=== PATIENT | male | born 1980 | race Caucasian/White ===

== ENCOUNTER 2016-12-13 21:18 | Emergency (ER) | payer MEDICAID ==
[~2016-12-13] VITALS: Ht 175.3 cm; Wt 120.9 kg
[~2016-12-13 21:18] MED LIST: BACTRIM DS 8001 TAB PO; DOXYCYCLINE 10100 MG PO; FLEXERIL 1010 MG/TAB PO; MOBIC15 MG PO; MOTRIN 200200 MG/TAB PO; MOTRIN SUSP20 MG/ML PO; NEURONTIN300 MG PO; NEURONTIN300 MG/CAP PO; NORCO 325 MG-101 TAB; PERCOCET 325 MG1 TAB PO; PERCR 7.5 PO; PROVENTIL0.09 MG/A1 IH; ROBAXIN 50500 MG/TAB PO; ROXICODONE 55 MG/TAB PO; TUSS PO; ULTRAM 50MG TAB50 MG PO; VALIUM 5MG T5 MG/TAB PO
[2016-12-13 21:21] VITALS: TEMP 98.3
[2016-12-13] MEDS ORDERED: MOBIC15 MG PO (21:45)
[2016-12-13] MEDS ORDERED: PERCOCET 325 MG1 TA3 PO (21:45)
[2016-12-13] MEDS ORDERED: EFFEXOR 75M75 MG/TAB PO (21:46)
[2016-12-13] MEDS ORDERED: ATARAX50 MG PO (21:46)
[2016-12-13 23:40] VITALS: BP 112/74; PULSE 86
== END 2016-12-13 23:41 | disposition home or self-care (01) ==
LOC: COL.ER 21:18
DX: M54.5 Low back pain (principal); G89.29 Other chronic pain
CPT/HCPCS: J1170; J2360

== ENCOUNTER 2017-04-02 00:45 | Emergency (ER) | payer MEDICAID ==
[~2017-04-02] VITALS: Ht 175.3 cm; Wt 105.5 kg
[~2017-04-02 00:45] MED LIST changes: +ATARAX50 MG PO; +EFFEXOR 75M75 MG/TAB PO; +PERCOCET 325 MG1 TA3 PO
[2017-04-02 00:47] VITALS: BP 128/78; TEMP 98.1
[2017-04-02] MEDS ORDERED: BACTRIM DS 8001 TAB PO (01:25)
[2017-04-02 01:56] LABS: HEMATOCRIT 39.2 % (42.0-52.0); HEMOGLOBIN 14.1 g/dl (13.5-18.0)
[2017-04-02 02:06] LABS: CALCIUM 8.8 mg/dL (8.4-10.2); CREATININE, serum 0.89 mg/dL (0.66-1.25); POTASSIUM 3.9 mmol/L (3.4-5.0)
[2017-04-02 02:58] VITALS: PULSE 95
== END 2017-04-02 02:57 | disposition home or self-care (01) ==
LOC: COL.ER 00:45
PROVIDERS: Emergency Medicine
DX: R21 Rash and other nonspecific skin eruption (principal); R53.83 Other fatigue; F41.9 Anxiety disorder, unspecified; F32.9 Major depressive disorder, single episode, unspecified

== ENCOUNTER → 2017-04-08 | Outpatient (CLI) | payer MEDICAID ==
[~2017-04-08] MED LIST changes: +EFFEXOR100 MG PO
== END ==
LOC: MHCPAIN 11:23
DX: G89.29 Other chronic pain (principal); M47.817 Spondylosis without myelopathy or radiculopathy, lumbosacral region; M54.16 Radiculopathy, lumbar region; M53.3 Sacrococcygeal disorders, not elsewhere classified
CPT/HCPCS: G0463

== ENCOUNTER 2017-04-14 13:43 | Emergency (ER) | payer MEDICAID ==
[~2017-04-14] VITALS: Ht 175.3 cm; Wt 108.6 kg
[~2017-04-14 13:43] MED LIST changes: -EFFEXOR100 MG PO
[2017-04-14 13:55] VITALS: BP 117/67; TEMP 98.9
[2017-04-14] MEDS ORDERED: ATARAX50 MG PO (14:43)
[2017-04-14] MEDS ORDERED: EFFEXOR100 MG PO (14:44)
[2017-04-14 16:32] LABS: PH 6 (5-8); SQUAMOUS EPITHELIAL 0-2 /hpf; URINE APPEARANCE Clear; URINE BACTERIA None Seen /hpf; URINE BILIRUBIN Negative (NEGATIVE); URINE BLOOD Negative (NEGATIVE); URINE COLOR Straw; URINE GLUCOSE Negative (NEGATIVE); URINE KETONE Negative (NEGATIVE); URINE RBC 0-2 /hpf; URINE UROBILINOGEN Negative (NEGATIVE); URINE WBC 0-2 /hpf
[2017-04-14 17:46] VITALS: PULSE 92
== END 2017-04-14 17:48 | disposition home or self-care (01) ==
LOC: COL.ER 13:43
PROVIDERS: Emergency Medicine
DX: S10.93XA Contusion of unspecified part of neck, initial encounter (principal); W22.8XXA Striking against or struck by other objects, initial encounter; M54.6 Pain in thoracic spine; G89.29 Other chronic pain
CPT/HCPCS: J1170

== ENCOUNTER → 2017-04-18 | Outpatient (CLI) | payer MEDICAID ==
[~2017-04-18] MED LIST changes: +EFFEXOR100 MG PO
== END ==
LOC: MHCPAIN 07:29
DX: M47.817 Spondylosis without myelopathy or radiculopathy, lumbosacral region (principal)
CPT/HCPCS: J1100; Q9967

== ENCOUNTER 2017-05-05 21:47 | Emergency (ER) | payer MEDICAID ==
[~2017-05-05] VITALS: Ht 175.3 cm; Wt 106.8 kg
[2017-05-05 21:50] VITALS: BP 128/71; TEMP 98.8
[2017-05-05 22:46] VITALS: PULSE 92
== END 2017-05-05 22:47 | disposition home or self-care (01) ==
LOC: COL.ER 21:47
DX: M26.601 Right temporomandibular joint disorder, unspecified (principal); R51 Headache; Z87.891 Personal history of nicotine dependence; Z98.890 Other specified postprocedural states
CPT/HCPCS: J1200; J1885

== ENCOUNTER 2017-05-17 17:17 | Emergency (ER) | payer MEDICAID ==
[~2017-05-17] VITALS: Ht 175.3 cm; Wt 105.9 kg
[2017-05-17 17:21] VITALS: BP 163/78; TEMP 98.9
[2017-05-17 18:28] VITALS: PULSE 94
== END 2017-05-17 18:28 | disposition home or self-care (01) ==
LOC: COL.ER 17:17
DX: S46.911A Strain of unspecified muscle, fascia and tendon at shoulder and upper arm level, right arm, initial encounter (principal); F32.9 Major depressive disorder, single episode, unspecified; X50.0XXA Overexertion from strenuous movement or load, initial encounter; Y92.008 Other place in unspecified non-institutional (private) residence as the place of occurrence of the external cause

== ENCOUNTER → 2017-05-17 | Outpatient (CLI) | payer MEDICAID | LOC: MHCPAIN 10:15 | DX: G89.29 Other chronic pain (principal); M47.817 Spondylosis without myelopathy or radiculopathy, lumbosacral region; M54.16 Radiculopathy, lumbar region; F17.210 Nicotine dependence, cigarettes, uncomplicated | CPT/HCPCS: G0463 ==

== ENCOUNTER 2017-05-20 22:35 | Emergency (ER) | payer MEDICAID ==
[~2017-05-20] VITALS: Ht 175.3 cm; Wt 105.9 kg
[2017-05-20 22:38] VITALS: BP 135/72; TEMP 98.3
[2017-05-20 23:52] VITALS: PULSE 84
== END 2017-05-20 23:52 | disposition home or self-care (01) ==
LOC: COL.ER 22:35
DX: M25.511 Pain in right shoulder (principal); G89.29 Other chronic pain; M54.9 Dorsalgia, unspecified; F17.200 Nicotine dependence, unspecified, uncomplicated
CPT/HCPCS: J1885

== ENCOUNTER → 2017-08-20 | Outpatient (CLI) | payer MEDICAID | LOC: MHCPAIN 11:11 | DX: G89.29 Other chronic pain (principal); M47.27 Other spondylosis with radiculopathy, lumbosacral region; F17.210 Nicotine dependence, cigarettes, uncomplicated | CPT/HCPCS: G0463 ==

== ENCOUNTER 2018-01-15 20:48 | Emergency (ER) | payer MEDICAID ==
[~2018-01-15] VITALS: Ht 175.3 cm; Wt 90.0 kg
[2018-01-15 20:50] VITALS: BP 134/67; TEMP 98
[2018-01-15 21:10] LABS: COLLECTION METHOD CLEAN CATCH
[2018-01-15 21:15] LABS: MUCOUS Present /lpf; PH 5 (5-8); SQUAMOUS EPITHELIAL 0-2 /hpf; URINE APPEARANCE Clear; URINE BACTERIA None Seen /hpf; URINE BILIRUBIN Negative (NEGATIVE); URINE BLOOD 3+ (NEGATIVE); URINE COLOR Yellow; URINE GLUCOSE Negative (NEGATIVE); URINE KETONE Trace (NEGATIVE); URINE LEUKOCYTE ESTERASE Negative (NEGATIVE); URINE NITRATE Negative (NEGATIVE); URINE PROTEIN(semi-quant) Negative (NEGATIVE); URINE RBC >50 /hpf; URINE UROBILINOGEN >=4.0 mg/dL (NEGATIVE)
[2018-01-15] MEDS ORDERED: DOXYCYCLINE 10100 MG PO (21:58)
[2018-01-15 22:10] VITALS: PULSE 88
== END 2018-01-15 22:10 | disposition home or self-care (01) ==
LOC: COL.ER 20:48
PROVIDERS: Emergency Medicine
DX: R31.9 Hematuria, unspecified (principal); R30.0 Dysuria; Z87.442 Personal history of urinary calculi

== ENCOUNTER 2018-05-19 19:33 | Emergency (ER) | payer MEDICAID ==
[~2018-05-19] VITALS: Ht 177.8 cm; Wt 93.2 kg
[2018-05-19 19:46] VITALS: TEMP 98
[2018-05-19 20:08] LABS: COLLECTION METHOD CLEAN CATCH
[2018-05-19 20:15] LABS: MUCOUS Present /lpf; PH 5 (5-8); SQUAMOUS EPITHELIAL 0-2 /hpf; URINE APPEARANCE Clear; URINE BACTERIA None Seen /hpf; URINE BILIRUBIN Negative (NEGATIVE); URINE BLOOD Negative (NEGATIVE); URINE COLOR Yellow; URINE GLUCOSE Negative (NEGATIVE); URINE KETONE Negative (NEGATIVE); URINE LEUKOCYTE ESTERASE Negative (NEGATIVE); URINE NITRATE Negative (NEGATIVE); URINE PROTEIN(semi-quant) Negative (NEGATIVE); URINE RBC 0-2 /hpf
[2018-05-19 21:02] LABS: BASO % 0.5 % (0.0-2.0); EOS # 0.3 (0.0-0.7); EOS % 3.4 % (0-4.0); GRAN # 5.3 (1.4-6.5); GRAN % 63.8 % (42.2-75.2); HEMATOCRIT 40.5 % (42.0-52.0); HEMOGLOBIN 14.8 g/dl (13.5-18.0); LYMPH # 2.1 (1.2-3.4); LYMPH % 25.1 % (20.0-51.0); MEAN CELL VOLUME 87 fl (80.0-100.0); MEAN CORPUSCULAR HEMOGLOBIN 32 pg (27.0-31.0); MEAN CORPUSCULAR HGB CONC 37 g/dl (33.0-37.0); MEAN PLATELET VOLUME 9.1 fl (7.4-10.4); MONO # 0.6 (0.1-0.6); PLATELET COUNT 178 K/mm3 (130-400); RED BLOOD COUNT 4.65 M/mm3 (4.20-5.60); REDCELL DISTRIBUTION WIDTH-CV 12.2 % (11.5-14.5)
[2018-05-19 21:20] LABS: ALBUMIN 3.9 gm/dL (3.5-5.0); BILIRUBIN,TOTAL 0.3 mg/dL (0.0-1.0); CALCIUM 9.1 mg/dL (8.4-10.2); CREATININE, serum 0.88 mg/dL (0.66-1.25); POTASSIUM 3.7 mmol/L (3.4-5.0); TOTAL PROTEIN 6.8 gm/dL (6.4-8.2)
[2018-05-19] MEDS ORDERED: PROSCAR 5MG5 MG PO (21:47)
[2018-05-19] MEDS ORDERED: ALDACTONE50 MG PO (21:48)
[2018-05-19] MEDS ORDERED: ESTRACE 1MG1 MG/TAB PO (21:48)
[2018-05-19] MEDS ORDERED: CHANTIX 1MG1 MG PO (21:49)
[2018-05-19] MEDS ORDERED: ANUSOL-HC SUPPO25 MG RC (22:15)
[2018-05-19 22:30] VITALS: BP 115/70; PULSE 60
== END 2018-05-19 22:30 | disposition home or self-care (01) ==
LOC: COL.ER 19:33
PROVIDERS: Emergency Medicine
DX: R32 Unspecified urinary incontinence (principal); G89.29 Other chronic pain; M54.5 Low back pain; Z87.442 Personal history of urinary calculi
CPT/HCPCS: J7030; Q9967

== ENCOUNTER 2018-06-17 07:35 | Day surgery (SDC) | payer MEDICAID ==
[~2018-06-17] VITALS: Ht 177.8 cm; Wt 91.6 kg
[~2018-06-17 07:35] MED LIST changes: +ALDACTONE50 MG PO; +ANUSOL-HC SUPPO25 MG RC; +CHANTIX 1MG1 MG PO; +ESTRACE 1MG1 MG/TAB PO; +PROSCAR 5MG5 MG PO
[2018-06-17] MEDS ORDERED: WELLBUTRIN XL300 M1 PO (08:03)
[2018-06-17 08:04] VITALS: BP 115/73; PULSE 71; TEMP 98.3
[2018-06-17] MEDS ORDERED: RECTIV0.4% RC (10:50)
[2018-06-17 10:55] VITALS: BP 91/55; PULSE 71
[2018-06-17 11:10] VITALS: BP 107/66; PULSE 76; TEMP 98.5
[2018-06-17 11:25] VITALS: BP 102/63; PULSE 72
== END 2018-06-17 11:38 | disposition home or self-care (01) ==
LOC: SDCO 07:35
DX: K60.1 Chronic anal fissure (principal); K64.0 First degree hemorrhoids; F17.210 Nicotine dependence, cigarettes, uncomplicated; G89.29 Other chronic pain; M54.9 Dorsalgia, unspecified; F41.9 Anxiety disorder, unspecified; F41.0 Panic disorder [episodic paroxysmal anxiety]; F32.9 Major depressive disorder, single episode, unspecified; Z72.89 Other problems related to lifestyle
CPT/HCPCS: J2704; J7030

== ENCOUNTER 2018-10-23 19:49 | Emergency (ER) | payer MEDICAID ==
[~2018-10-23] VITALS: Ht 175.3 cm; Wt 95.5 kg
[~2018-10-23 19:49] MED LIST changes: +RECTIV0.4% RC; +WELLBUTRIN XL300 M1 PO
[2018-10-23 19:55] VITALS: BP 119/61; TEMP 97.1
[2018-10-23 21:35] VITALS: PULSE 78
== END 2018-10-23 21:36 | disposition home or self-care (01) ==
LOC: COL.ER 19:49
DX: J30.89 Other allergic rhinitis (principal); J30.81 Allergic rhinitis due to animal (cat) (dog) hair and dander; F32.9 Major depressive disorder, single episode, unspecified; F41.9 Anxiety disorder, unspecified; F17.210 Nicotine dependence, cigarettes, uncomplicated
CPT/HCPCS: J1100

== ENCOUNTER 2019-01-24 22:07 | Emergency (ER) | payer SELFPAY ==
[~2019-01-24] VITALS: Ht 175.3 cm; Wt 95.5 kg
[2019-01-24 22:15] VITALS: BP 125/61; TEMP 98.7
[2019-01-25] MEDS ORDERED: CEPHALEXIN500 M1 PO ×3 (01:49→01:55)
[2019-01-25] MEDS ORDERED: BACTRIM DS 8001 TAB PO ×3 (01:49→01:55)
[2019-01-25 01:56] VITALS: PULSE 80
== END 2019-01-25 01:57 | disposition home or self-care (01) ==
LOC: COL.ER 22:07
DX: S91.331A Puncture wound without foreign body, right foot, initial encounter (principal); W22.8XXA Striking against or struck by other objects, initial encounter; Y92.009 Unspecified place in unspecified non-institutional (private) residence as the place of occurrence of the external cause
CPT/HCPCS: J1170; J7030

== ENCOUNTER 2019-01-27 15:13 | Emergency (ER) | payer OTHER ==
[~2019-01-27] VITALS: Ht 175.3 cm; Wt 99.1 kg
[~2019-01-27 15:13] MED LIST changes: +CEPHALEXIN500 M1 PO
[2019-01-27 15:16] VITALS: BP 127/77; PULSE 79; TEMP 98
[2019-01-27 15:53] LABS: BASO % 0.6 % (0.0-2.0); EOS # 0.3 (0.0-0.7); EOS % 4.4 % (0-4.0); GRAN # 4.2 (1.4-6.5); HEMATOCRIT 42.4 % (42.0-52.0); HEMOGLOBIN 14.9 g/dl (13.5-18.0); LYMPH # 1.2 (1.2-3.4); LYMPH % 19.5 % (20.0-51.0); MEAN CELL VOLUME 92 fl (80.0-100.0); MEAN CORPUSCULAR HEMOGLOBIN 32 pg (27.0-31.0); MEAN CORPUSCULAR HGB CONC 35 g/dl (33.0-37.0); MEAN PLATELET VOLUME 9.1 fl (7.4-10.4); MONO # 0.5 (0.1-0.6); MONO % 8.3 % (1.7-9.3); PLATELET COUNT 191 K/mm3 (130-400); RED BLOOD COUNT 4.63 M/mm3 (4.20-5.60); REDCELL DISTRIBUTION WIDTH-CV 11.5 % (11.5-14.5)
[2019-01-27 16:03] LABS: ALBUMIN 3.9 gm/dL (3.5-5.0); BILIRUBIN,TOTAL 0.2 mg/dL (0.0-1.0); C-REACTIVE PROTEIN 3.1 mg/dL (0.0-0.9); CALCIUM 9.1 mg/dL (8.4-10.2); CREATININE, serum 0.89 (0.66-1.25); POTASSIUM 4.5 mmol/L (3.4-5.0); TOTAL PROTEIN 6.9 gm/dL (6.4-8.2)
[2019-01-27] MEDS ORDERED: LEVAQUIN 750MG750 M1 PO (16:52)
== END 2019-01-27 18:13 | disposition home or self-care (01) ==
LOC: COL.ER 15:13
PROVIDERS: Physician Assistant
DX: L03.115 Cellulitis of right lower limb (principal); F17.210 Nicotine dependence, cigarettes, uncomplicated; F32.9 Major depressive disorder, single episode, unspecified; F41.9 Anxiety disorder, unspecified; Z87.442 Personal history of urinary calculi
CPT/HCPCS: J3370; J7050

== ENCOUNTER 2019-01-29 07:00 | Outpatient (RCR) | payer OTHER ==
[2019-01-28 09:29] VITALS: BP 119/68; PULSE 80; TEMP 98.4
--- NOTE | 2019-01-28 16:45 | NUR ---
Voicemail left for pt requesting he come in tonight for abx. Vanco is being changed to BID.
[~2019-01-29] VITALS: Ht 175.3 cm; Wt 101.4 kg
[~2019-01-29 07:00] MED LIST changes: +LEVAQUIN 750MG750 M1 PO
--- NOTE | 2019-01-29 14:07 | NUR ---
Per pt report he has apt at [facility] today at 1430.Patient given EU card to give ortho number to call for abx clarification. this nurse requested pt to call this nurse after apt.Dr Mary nurse,Kandi called and per her report she will call ortho to get abx clarification.
--- NOTE | 2019-01-29 15:25 | NUR ---
Pt called this nurse and reports ortho instructed him to stop iv abx.This nurse called Gerson Chau at [facility] to report.Per Kandi,She will callback with order.
== END 2019-01-29 16:13 | disposition home or self-care (01) ==
LOC: EUO 07:00
DX: L03.115 Cellulitis of right lower limb (principal)
CPT/HCPCS: J3370; J7050

== ENCOUNTER 2021-05-07 19:38 | Emergency (ER) | payer OTHER ==
[~2021-05-07] VITALS: Ht 175.3 cm; Wt 118.2 kg
[2021-05-07 21:05] LABS: BASO # 0.1 (0.0-0.2); BASO % 0.6 % (0.0-2.0); EOS # 0.3 (0.0-0.7); GRAN # 7.3 (1.4-6.5); GRAN % 68.2 % (42.2-75.2); HEMATOCRIT 45.1 % (42.0-52.0); HEMOGLOBIN 15.8 g/dl (13.5-18.0); LYMPH # 2.4 (1.2-3.4); MEAN CELL VOLUME 90 fl (80.0-100.0); MEAN CORPUSCULAR HEMOGLOBIN 31 pg (27.0-31.0); MEAN CORPUSCULAR HGB CONC 35 g/dl (33.0-37.0); MONO # 0.6 (0.1-0.6); MONO % 5.9 % (1.7-9.3); PLATELET COUNT 247 K/mm3 (130-400); RED BLOOD COUNT 5.03 M/mm3 (4.20-5.60); REDCELL DISTRIBUTION WIDTH-CV 12.1 % (11.5-14.5)
[2021-05-07 21:25] LABS: ALANINE AMINOTRANSFERASE 30 U/L (4-49); ALBUMIN 4.6 gm/dL (3.5-5.0); ALKALINE PHOSPHATASE 56 U/L (50-136); ANION GAP 7 mmol/L (7-16); AST,SGOT 28 U/L (15-37); BILIRUBIN,TOTAL 0.3 mg/dL (0.0-1.0); BLOOD UREA NITROGEN 14 mg/dL (9-20); CALCIUM 9.8 mg/dL (8.4-10.2); CARBON DIOXIDE 23 mmol/L (22-30); CHLORIDE 111 mmol/L (98-107); GLUCOSE 99 mg/dL (74-106); LIPASE 132 U/L (23-300); POTASSIUM 3.9 mmol/L (3.4-5.0); SODIUM 141 mmol/L (137-145); TOTAL PROTEIN 7.8 gm/dL (6.4-8.2)
[2021-05-07 21:33] LABS: C-REACTIVE PROTEIN < 0.5 mg/dL (0.0-0.9)
[2021-05-07 21:50] LABS: COLLECTION METHOD CLEAN CATCH
[2021-05-07 21:56] LABS: MUCOUS Present /lpf; PH 5 (5-8); SQUAMOUS EPITHELIAL 0-2 /hpf; URINE APPEARANCE Clear; URINE BACTERIA None Seen /hpf; URINE BILIRUBIN Negative (NEGATIVE); URINE BLOOD Negative (NEGATIVE); URINE COLOR Yellow; URINE GLUCOSE Negative (NEGATIVE); URINE KETONE Trace (NEGATIVE); URINE LEUKOCYTE ESTERASE Trace (NEGATIVE); URINE NITRATE Negative (NEGATIVE); URINE PROTEIN(semi-quant) Negative (NEGATIVE); URINE RBC 0-2 /hpf
[2021-05-07] MEDS ORDERED: FLEXERIL 1010 MG/TAB PO (22:48)
[2021-05-07 22:55] VITALS: BP 122/64; PULSE 84; TEMP 98.3
== END 2021-05-07 22:57 | disposition home or self-care (01) ==
LOC: COL.ER 19:38
PROVIDERS: Nurse Practitioner Primary Care
DX: M54.5 Low back pain (principal); R11.2 Nausea with vomiting, unspecified; G89.29 Other chronic pain; F41.9 Anxiety disorder, unspecified; Z87.442 Personal history of urinary calculi; F17.210 Nicotine dependence, cigarettes, uncomplicated; Z79.899 Other long term (current) drug therapy
CPT/HCPCS: J1885; J2405; J7030